=== PATIENT | female | born 1990 | race Caucasian/White ===

== ENCOUNTER → 2022-05-18 11:48 | Outpatient (BNVA) | payer SELFPAY | PROVIDERS: Family Provider Family Medicine; Visit Provider Registered Nurse Neonatal Intensive Care | DX: M25.532 Pain in left wrist (principal) | CPT/HCPCS: 73110 ==

== ENCOUNTER 2023-08-08 08:04 | Emergency (ER) | payer SELFPAY ==
--- NOTE | 2023-08-08 08:04 | XRR_ITS ---
PROCEDURE INFORMATION: Exam: XR Right Hand Exam date and time: 08/08/2023 8:15 AM Age: 32 years old Clinical indication: Injury or trauma; Hand; Right; Injury details: Laceration to RT palm TECHNIQUE: Imaging protocol: Radiologic exam of the right hand. Views: 3 or more views. Total images: 1 COMPARISON: No relevant prior studies available. FINDINGS: Bones/joints: Bandages noted around fingers. No acute fracture nor subluxation. No osseous erosion nor periosteal reaction. Soft tissues: No radio-dense foreign body. XR/XR hand RT min 3V* [id number] IMPRESSION: 1. No acute osseous pathology. 2. No radio-dense foreign body.
[2023-08-08 08:07] VITALS: BP 132/90; PULSE 84; TEMP 36.4; O2SAT 100; BMI 27.4
[2023-08-08 08:15] LABS: Basophils # 0.1 10^3/uL (0.0-0.1); Basophils % 0.7 %; Eosinophils # 0.2 10^3/uL (0.0-0.8); Eosinophils % 2.2 %; Hematocrit 32.9 % (36-47); Lymphocytes # 2.2 10^3/uL (0.8-4.8); Lymphocytes % 32.7 %; Mean Corpuscular HGB Conc 32.2 g/dL (30-55); Mean Corpuscular Hemoglobin 27.1 pg (27-33); Mean Corpuscular Volume 84.1 fl (85-98); Mean Platelet Volume 11.6 fL (7.4-10.4); Monocytes # 0.6 10^3/uL (0.2-0.9); Monocytes % 8.5 %; Neutrophils # 3.74 10^3/uL (1.8-7.7); Neutrophils % 55.8 %; Nucleated Red Blood Cells % 0 %; Platelet Count 191 10^3/cmm (157-399); Red Blood Count 3.91 10^6/uL (3.85-5.65); Red Cell Distribution Width 14.5 % (12.1-15.1); White Blood Count 6.72 10^3/uL (3.29-11.43)
[2023-08-08] MEDS: ceFAZolin 1,000 MG in sodium chloride 0.9% (plus) 50 ML 100 MG IV (08:25)
[2023-08-08 08:28] VITALS: BP 141/97; PULSE 84; RESP 18; O2SAT 100
[2023-08-08 08:34] LABS: Alanine Aminotransferase 9 U/L (0-33); Albumin Level 3.9 g/dL (3.5-5.2); Alkaline Phosphatase 52 U/L (35-105); Anion Gap 13.8 (5-19); Aspartate Amino Transferase 13 U/L (0-32); Blood Urea Nitrogen 10 mg/dL (6-20); Calcium 8.1 mg/dL (8.5-10.5); Carbon Dioxide 26 mmol/L (22-29); Chloride 103 mmol/L (98-107); Creatinine Clr Calc Pharmacy 104.1116; Glomerular Filtration Rate 84.2 mL/min (90-130); Glucose 88 mg/dL (65-115); Osmolality Calculated 286 mOsm/kg (285-295); Potassium 3.8 mmol/L (3.5-5.1); Sodium 139 mmol/L (136-145); Total Bilirubin 0.2 mg/dL (0.15-1.2); Total Protein 6.9 g/dL (6.6-8.7)
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
[2023-08-08 08:55] VITALS: BP 139/105; PULSE 73; O2SAT 99
[2023-08-08 11:42] VITALS: BP 139/92; PULSE 86; RESP 18; O2SAT 100
[2023-08-08] MEDS: bacitracin ointment Pkt 1 EACH TOPICAL (11:43)
[2023-08-08 11:51] VITALS: BP 139/92; PULSE 86; RESP 18; O2SAT 100
== END 2023-08-08 11:52 | disposition home or self-care (01) ==
PROVIDERS: Emergency Provider Family Medicine
DX: S66.120A Laceration of flexor muscle, fascia and tendon of right index finger at wrist and hand level, initial encounter (principal); S61.411A Laceration without foreign body of right hand, initial encounter; W27.0XXA Contact with workbench tool, initial encounter
CPT/HCPCS: 12001; 73130; 80053; 85025; 86850; 86900; 96365; 96366; 99284; J0690

== ENCOUNTER → 2024-06-16 11:50 | Outpatient (BNVA) | payer BC, SELFPAY | PROVIDERS: Visit Provider Nurse Practitioner | DX: R11.10 Vomiting, unspecified (principal) | CPT/HCPCS: 87400 ==

== ENCOUNTER 2024-09-09 12:42 | Outpatient (CLI) | payer BC, MEDICAID, SELFPAY ==
[2024-09-09 13:41] LABS: Basophils # 0.1 10^3/uL (0.0-0.1); Basophils % 0.6 %; Eosinophils # 0.5 10^3/uL (0.0-0.8); Eosinophils % 5.7 %; Hematocrit 40.5 % (36-47); Lymphocytes # 2.3 10^3/uL (0.8-4.8); Lymphocytes % 28.4 %; Mean Corpuscular HGB Conc 32.8 g/dL (30-55); Mean Corpuscular Hemoglobin 28.5 pg (27-33); Mean Corpuscular Volume 86.9 fl (85-98); Mean Platelet Volume 12.5 fL (7.4-10.4); Monocytes # 0.6 10^3/uL (0.2-0.9); Monocytes % 6.8 %; Neutrophils % 58.3 %; Nucleated Red Blood Cells % 0 %; Platelet Count 183 10^3/cmm (157-399); Red Blood Count 4.66 10^6/uL (3.85-5.65); Red Cell Distribution Width 13.5 % (12.1-15.1); White Blood Count 8.24 10^3/uL (3.29-11.43)
[2024-09-09 13:56] LABS: Estmated Average Glucose 88; Hemoglobin A1C 4.7 % (4.0-6.0)
[2024-09-09 14:12] LABS: Alanine Aminotransferase 10 U/L (0-33); Albumin Level 4.1 g/dL (3.5-5.2); Alkaline Phosphatase 60 U/L (35-105); Aspartate Amino Transferase 13 U/L (0-32); Blood Urea Nitrogen 10 mg/dL (6-20); Calcium 8.6 mg/dL (8.5-10.5); Carbon Dioxide 24 mmol/L (22-29); Chloride 102 mmol/L (98-107); Chol HDL Ratio 3.35 mg/dL (0.0-4.40); Cholesterol 124 mg/dL (0-200); Globulin 3.2 g/dL (1.3-4.6); Glomerular Filtration Rate 143.9 mL/min (90-130); Glucose 100 mg/dL (65-115); HDL Cholesterol 37 mg/dL (60-100); LDL Cholesterol Calculated 58 mg/dL (50-129); LDL HDL Ratio 1.57 RATIO (0.00-3.22); Osmolality Calculated 281 mOsm/kg (285-295); Sodium 136 mmol/L (136-145); Thyroid Stimulating Hormone 0.65 uIU/mL (0.27-4.20); Total Bilirubin 0.2 mg/dL (0.15-1.2); Total Protein 7.3 g/dL (6.6-8.7); Triglycerides 147 mg/dL (0-150)
[2024-09-09 14:16] LABS: Hepatitis A Antibody IgM Non-Reactive (Nonreactive); Hepatitis B Core IgM Non-Reactive (Nonreactive); Hepatitis B Surface Antigen Non-Reactive (Nonreactive)
[2024-09-09 14:53] LABS: Hepatitis C Virus Antibody Reactive (Nonreactive)
[2024-09-10 15:09] LABS: HEP C RNA Viral Load Quant <1.18 NOT DETECTED Log IU/mL (NOT DETECTED); HEP C RNA Viral Load Quant <15 NOT DETECTED IU/mL (NOT DETECTED)
== END 2024-09-09 12:43 | disposition home or self-care (01) ==
LOC: LAB 13:00
PROVIDERS: Visit Provider Internal Medicine
DX: F15.20 Other stimulant dependence, uncomplicated (principal)
CPT/HCPCS: 36415; 80053; 80061; 80074; 83036; 84443; 85025; 87522

== ENCOUNTER 2024-11-30 21:27 | Emergency (ER) | payer OTHER, BC, MEDICAID, SELFPAY ==
[2024-11-30 21:35] VITALS: BP 125/85; PULSE 81; RESP 17; TEMP 36.7; O2SAT 99; BMI 35.7
[2024-11-30 23:15] VITALS: BP 136/96
[2024-11-30] MEDS: hyDROXYzine 25 mg Capsule PO (23:15)
[2024-11-30] MEDS: ibuprofen 600 mg Tablet PO (23:15)
[2024-11-30] MEDS: cloNIDine 0.1 mg Tablet PO (23:15)
[2024-11-30] MEDS: ondansetron 4 MG Tablet PO (23:25)
--- NOTE | 2024-11-30 23:25 | ED_ITS ---
Documented by User: RANI Donaldson 11/30/24 23:29 HPI - Recheck/Abnormal Lab/Rx General: Chief Complaint: Recheck/Abnormal Lab/Rx Stated Complaint: W/D symptoms from medication Time Seen by Provider: 11/30/24 21:47 Source: patient Mode of arrival: ambulatory Limitations: no limitations History of Present Illness: Patient is a 34-year-old female who presents the emergency department complaining of withdrawal symptoms. She states that she has been taking kratom extract for a few months, but states it is got too expensive and she does not want to be reliant upon it so she stopped altogether this morning. States that she has been agitated, restless, has had diarrhea, cold sweats, and chills all day today and states that a friend of hers told her to go to the ED for treatment because they had severe withdrawal symptoms as well. Patient states that she cannot miss work, so is here somewhat prophylactically to make sure that her symptoms do not worsen. Vitals stable at this time, afebrile. complaint: other (Withdrawal symptoms) Initial visit (ago): hour(s) Related Data Home Medications ?Medication ?Instructions ?Recorded ?Confirmed lisinopril 30 mg tablet 30 mg PO DAILY 06/16/2406/05 naltrexone 4.5 mg capsule mg PO 06/16/24 06/16/24 topiramate 25 mg capsule,extended 25 mg PO DAILY 06/1606/16/24 release 24 hr Previous Rx's ?Medication ?Instructions ?Recorded diclofenac sodium 75 mg 75 mg PO Q12H PRN pain #20 t abs 08/08/23 tablet,delayed release hydroxyzine HCl 25 mg tablet 25 mg PO Q8H PRN nausea a nd 11/30/24 vomiting #30 tabs ondansetron 4 mg disintegrating 4 mg PO TID PRN nausea and 11/30/24 tablet vomiting #30 tabs Allergies Allergy/AdvReac Type Severity Reaction Status Date / Time No Known Allergies Allergy Verified 06/16/24 11:43 Review of Systems General: Reports: 10 or more systems reviewed and unremarkable except in HPI and below and Other (Reports withdrawal symptoms) Const: Reports: chills and night sweats; Denies: fever(s) or fatigue Eyes: Denies: change in vision ENMT: Denies: throat pain, ear or mastoid pain or nasal discharge Card: Denies: chest pain, palpitations, swelling of feet/ankles or lightheadedness Resp: Denies: dyspnea, productive cough or wheezing GI: Reports: diarrhea; Denies: abdominal pain, nausea, vomiting or constipation : Denies: flank pain, difficulty voiding, dysuria or urinary frequency Musc: Denies: neck pain, back pain or joint pain Skin/Breast: Denies: rash Neuro: Reports: restless legs; Denies: headache(s), numbness in extremities or weakness in extremities Psych: Reports: irritability PFSH ED PFSH: Medical History Psychiatric care Generalized anxiety disorder Other stimulant dependence, in remission Social History Smoking and tobacco/nicotine status: never used tobacco/nicotine Female Reproductive History: Date of last menstrual period: 11/14/24 Physical Exam Const: COMMON NORMALS: no acute distress, patient oriented x3 and no limitations GENERAL APPEARANCE: cooperative, comfortable and well developed ORIENTATION/CONSCIOUSNESS: Yes awake, Yes oriented to person, Yes oriented to place and Yes oriented to time HENMT: COMMON NORMALS: normocephalic, atraumatic and hearing grossly normal bilaterally HEAD & SCALP: normocephalic and atraumatic Eye: COMMON NORMALS: Equal, round and reactive pupils present, EOMs intact bilaterally and conjunctivae normal CONJUNCTIVA: Yes conjunctivae normal PUPIL: Yes Equal, round and reactive pupils present Neck/C-Spine: COMMON NORMALS: full ROM, supple and no JVD Resp: COMMON NORMALS: normal respiratory effort, No retractions, No use of accessory muscles and clear to auscultation bilaterally AUSCULTATION: clear to auscultation bilaterally Cardio: COMMON NORMALS: no JVD, regular rate, regular rhythm, No clicks present (Cardio), No murmurs present (Cardio) and No rub (Cardio) RATE: regular rate RHYTHM: regular rhythm GI: COMMON NORMALS: Normal to inspection, nondistended, normoactive bowel s ounds present, Soft to palpation and non-tender AUSCULTATION: Yes normoactive bowel sounds PALPATION: Yes Soft to palpation RECTAL EXAM: deferred Extremity: COMMON NORMALS: normal to inspection, full ROM and capillary refill normal Neuro: COMMON NORMALS: patient oriented x3, moves all extremities, no focal motor deficits and no sensory deficits noted SENSORIUM/ORIENTATION: Yes orie nted to person, Yes oriented to place and Yes oriented to time Psych: COMMON NORMALS: mental status grossly normal and Normal thought process present THOUGHT PROCESS: Normal thought process present Skin: COMMON NORMALS: no rashes or lesions noted GENERAL SKIN EXAM: no rashes or lesions noted Course Vital Signs: Vital signs: Vital Signs Temperature 98.1 F 11/30/24 21:35 Pulse Rate 76 11/30/24 23:28 Respiratory Rate 16 11/30/24 23:28 Blood Pressure 136/56 11/30/24 23:28 Pulse Oximetry 98 11/30/24 23:28 Oxygen Delivery Me thod Room Air 11/30/24 21:35 MDM - Recheck/Abnormal Lab/Rx Medical Decision Making Patient presenting here with concerns of withdrawal from kratom, her last dose was this morning. Exam was unremarkable, only reported mild symptoms that began this morning. I had placed orders for IV fluids to be taken with clonidine, IV Zofran, hydroxyzine, and ibuprofen body aches but she denied this stating she needed to get home. She took the p.o. medications and I gave her strict return precautions to the ED such as persistent vomiting or diarrhea leading to dehydration, severe agitation, confusion, hallucinations, high fever or muscle rigidity, and chest pain or shortness of breath. She agreed with this plan, Zofran and hydroxyzine sent to her pharmacy. I did warn her that going cold turkey off of the kratom might precipitate significant withdrawal symptoms. No radiology studies performed this visit Discharge Plan Discharge Patient Disposition: Home Clinical Impression: Drug withdrawal Qualifiers: Substance type: other psychoactive substance Qualified Code(s): F19.939 - Other psychoactive substance use, unspecified with withdrawal, unspecified Condition: Stable Prescriptions: New hydroxyzine HCl 25 mg tablet 25 mg PO Q8H PRN (Reason: nausea and vomiting) Qty: 30 0RF ondansetron 4 mg tablet,disintegrating 4 mg PO TID PRN (Reason: nausea and vomiting) Qty: 30 0RF Discontinued hydroxyzine HCl 25 mg tablet 25 mg PO BID PRN ondansetron HCl 4 mg tablet 4 mg PO Q8H PRN (Reason: nausea and vomiting) Qty: 10 0RF No Action topiramate 25 mg capsule,extended release 24hr 25 mg PO DAILY naltrexone 4.5 mg capsule PO lisinopril 30 mg tablet 30 mg PO DAILY diclofenac sodium 75 mg tablet,delayed release (DR/EC) 75 mg PO Q12H PRN (Reason: pain) Qty: 20 0RF Discharge Orders: Discharge ED (Routine); Ordered 11/30/24 Ordered By: Sohan Henderson Patient Instructions: Pain Management, Patient Portal & Charlie Instructions Activity Restrictions/Additional Instructions: Kratom Withdrawal Discharge Discharge Instructions for Kratom Withdrawal Overview: Kratom (Mitragyna speciosa) withdrawal can present with both physical and psychological symptoms, including myalgias, joint pain, insomnia, diarrhea, nausea, vomiting, lacrimation, rhinorrhea, tremor, chills, restlessness, anxiety, irritability, and depressed mood. These symptoms typically begin within 12?24 hours of cessation and may last up to 5?7 days, with peak severity in the first 2?3 days. Medications Prescribed: - Antiemetic: Take as directed for nausea and vomiting. - Hydroxyzine: Take as prescribed for anxiety, restlessness, and insomnia. Hydroxyzine is a non-benzodiazepine antihistamine with anxiolytic and sedative properties, which may help alleviate psychological withdrawal symptoms. Symptom Management: - Maintain adequate hydration, especially if experiencing vomiting or diarrhea. - Use [id number]-[id number] analgesics (e.g., acetaminophen or NSAIDs) for myalgias and body aches, unless contraindicated. - Rest in a quiet, comfortable environment. - Monitor for worsening symptoms, especially if there is a history of polysubstance use or underlying medical conditions. Handling Abrupt Cessation ( [place] ): Abrupt cessation of kratom can precipitate significant withdrawal symptoms. While most cases are self-limited and managed symptomatically, severe or persistent symptoms may require escalation of care. There is limited evidence for the use of opioid agonist therapy (e.g., buprenorphine) in refractory cases, but this is typically reserved for severe withdrawal or comorbid opioid use disorder and should be managed by addiction specialists. Strict Return Precautions: Return to the emergency department or contact your healthcare provider immediately if you experience: - Persistent vomiting or diarrhea leading to signs of dehydration (dizziness, inability to keep fluids down, decreased urination) - Severe agitation, confusion, hallucinations, or suicidal thoughts - Chest pain, palpitations, or shortness of breath - High fever, muscle rigidity, or tremors that do not improve - Any other symptoms that feel severe or unmanageable Follow-Up: Schedule follow-up with your primary care provider or addiction medicine specialist within 1 week for ongoing support and assessment of withdrawal progression and risk of relapse. Additional Notes: Avoid use of other sedating substances (e.g., alcohol, benzodiazepines) during withdrawal, as these may increase the risk of adverse effects. If you have a history of psychiatric illness, monitor for worsening mood or anxiety and seek prompt evaluation if symptoms escalate. For any questions or concerns, contact your healthcare provider. Print Language: Jordanian Coding Level of Care Code ED Recreational Therapist for Kaylieg Fwd Documented by User: Hal Burns, 12/01/24 00:37 HPI - Recheck/Abnormal Lab/Rx General: Chief Complaint: Recheck/Abnormal Lab/Rx Stated Complaint: W/D symptoms from medication Time Seen by Provider: 11/30/24 21:47 Related Data Home Medications ?Medication ?Instructions ?Recorded ?Confirmed lisinopril 30 mg tablet 30 mg PO DAILY 06/16/2406/05 naltrexone 4.5 mg capsule mg PO 06/16/24 06/16/24 topiramate 25 mg capsule,extended 25 mg PO DAILY 06/1606/16/24 release 24 hr Previous Rx's ?Medication ?Instructions ?Recorded diclofenac sodium 75 mg 75 mg PO Q12H PRN pain #20 t abs 08/08/23 tablet,delayed release hydroxyzine HCl 25 mg tablet 25 mg PO Q8H PRN nausea a nd 11/30/24 vomiting #30 tabs ondansetron 4 mg disintegrating 4 mg PO TID PRN nausea and 11/30/24 tablet vomiting #30 tabs Allergies Allergy/AdvReac Type Severity Reaction Status Date / Time No Known Allergies Allergy Verified 06/16/24 11:43 [facility] ED PFSH: Medical History Psychiatric care Generalized anxiety disorder Other stimulant dependence, in remission Social History Smoking and tobacco/nicotine status: never used tobacco/nicotine Course Vital Signs: Vital signs: Vital Signs Temperature 98.1 F 11/30/24 21:35 Pulse Rate 76 11/30/24 23:28 Respiratory Rate 16 11/30/24 23:28 Blood Pressure 136/56 11/30/24 23:28 Pulse Oximetry 98 11/30/24 23:28 Oxygen Delivery Me thod Room Air 11/30/24 21:35 MDM - Recheck/Abnormal Lab/Rx Medical Decision Making Patient presenting here with concerns of withdrawal from kratom, her last dose was this morning. Exam was unremarkable, only reported mild symptoms that began this morning. I had placed orders for IV fluids to be taken with clonidine, IV Zofran, hydroxyzine, and ibuprofen body aches but she denied this stating she needed to get home. She took the p.o. medications and I gave her strict return precautions to the ED such as persistent vomiting or diarrhea leading to dehydration, severe agitation, confusion, hallucinations, high fever or muscle rigidity, and chest pain or shortness of breath. She agreed with this plan, Zofran and hydroxyzine sent to her pharmacy. I did warn her that going cold turkey off of the kratom might precipitate significant withdrawal symptoms. This patient was originally seen by Mr. Beatriz PA-C. I agree with his history, evaluation, and management. Discharge Plan Discharge Patient Disposition: Home Clinical Impression: Drug withdrawal Qualifiers: Substance type: other psychoactive substance Qualified Code(s): F19.939 - Other psychoactive substance use, unspecified with withdrawal, unspecified Condition: Stable Prescriptions: New hydroxyzine HCl 25 mg tablet 25 mg PO Q8H PRN (Reason: nausea and vomiting) Qty: 30 0RF ondansetron 4 mg tablet,disintegrating 4 mg PO TID PRN (Reason: nausea and vomiting) Qty: 30 0RF Discontinued hydroxyzine HCl 25 mg tablet 25 mg PO BID PRN ondansetron HCl 4 mg tablet 4 mg PO Q8H PRN (Reason: nausea and vomiting) Qty: 10 0RF No Action topiramate 25 mg capsule,extended release 24hr 25 mg PO DAILY naltrexone 4.5 mg capsule PO lisinopril 30 mg tablet 30 mg PO DAILY diclofenac sodium 75 mg tablet,delayed release (DR/EC) 75 mg PO Q12H PRN (Reason: pain) Qty: 20 0RF Discharge Orders: Discharge ED (Routine); Ordered 11/30/24 Ordered By: Sohan Henderson Patient Instructions: Pain Management, Patient Portal & Charlie Instructions Activity Restrictions/Additional Instructions: Kratom Withdrawal Discharge Discharge Instructions for Kratom Withdrawal Overview: Kratom (Mitragyna speciosa) withdrawal can present with both physical and psychological symptoms, including myalgias, joint pain, insomnia, diarrhea, nausea, vomiting, lacrimation, rhinorrhea, tremor, chills, restlessness, anxiety, irritability, and depressed mood. These symptoms typically begin within 12?24 hours of cessation and may last up to 5?7 days, with peak severity in the first 2?3 days. Medications Prescribed: - Antiemetic: Take as directed for nausea and vomiting. - Hydroxyzine: Take as prescribed for anxiety, restlessness, and insomnia. Hydroxyzine is a non-benzodiazepine antihistamine with anxiolytic and sedative properties, which may help alleviate psychological withdrawal symptoms. Symptom Management: - Maintain adequate hydration, especially if experiencing vomiting or diarrhea. - Use [id number] analgesics (e.g., acetaminophen or NSAIDs) for myalgias and body aches, unless contraindicated. - Rest in a quiet, comfortable environment. - Monitor for worsening symptoms, especially if there is a history of polysubstance use or underlying medical conditions. Handling Abrupt Cessation ( [place] ): Abrupt cessation of kratom can precipitate significant withdrawal symptoms. While most cases are self-limited and managed symptomatically, severe or persistent symptoms may require escalation of care. There is limited evidence for the use of opioid agonist therapy (e.g., buprenorphine) in refractory cases, but this is typically reserved for severe withdrawal or comorbid opioid use disorder and should be managed by addiction specialists. Strict Return Precautions: Return to the emergency department or contact your healthcare provider immediately if you experience: - Persistent vomiting or diarrhea leading to signs of dehydration (dizziness, inability to keep fluids down, decreased urination) - Severe agitation, confusion, hallucinations, or suicidal thoughts - Chest pain, palpitations, or shortness of breath - High fever, muscle rigidity, or tremors that do not improve - Any other symptoms that feel severe or unmanageable Follow-Up: Schedule follow-up with your primary care provider or addiction medicine specialist within 1 week for ongoing support and assessment of withdrawal progression and risk of relapse. Additional Notes: Avoid use of other sedating substances (e.g., alcohol, benzodiazepines) during withdrawal, as these may increase the risk of adverse effects. If you have a history of psychiatric illness, monitor for worsening mood or anxiety and seek prompt evaluation if symptoms escalate. For any questions or concerns, contact your healthcare provider. Print Language: Jordanian Coding Level of Care Code ED Recreational Therapist for Xavier Byrd
[2024-11-30 23:28] VITALS: BP 136/56; PULSE 76; RESP 16; O2SAT 98
== END 2024-11-30 23:30 | disposition home or self-care (01) ==
PROVIDERS: Emergency Provider Physician Assistant
DX: F19.939 Other psychoactive substance use, unspecified with withdrawal, unspecified (principal)
CPT/HCPCS: 99283; J9999; Q0162

== ENCOUNTER 2024-12-03 11:25 | Emergency (ER) | payer OTHER, BC, MEDICAID, SELFPAY ==
[2024-12-03 11:30] VITALS: BP 121/85; PULSE 73; RESP 16; TEMP 36.5; O2SAT 100
--- NOTE | 2024-12-03 12:00 | W.ED.GENADLT ---
HPI - General Adult General: Chief complaint: General Medical Stated complaint: chills/aches Time Seen by Provider: 12/03/24 11:30 Source: patient Mode of arrival: ambulatory Limitations: no limitations History of Present Illness: Patient is a 34-year-old female presents to ED today for evaluation and treatment of kratom withdrawal. Patient states she started using this approximately 4 months ago to help with energy as she is currently working 2 jobs. She states she was using the higher form of this medication and getting it at a vape shop. She states she is no longer wanting to be dependent upon this medication and thus tried to withdraw from it a few days ago but the symptoms were too significant. She was seen here in the emergency department and given nausea meds, hydroxyzine, and clonidine. She does feel like the clonidine helped but was not provided a prescription of this. She states that withdrawal symptoms were so bad at home that she resorted back to using kratom which alleviated all of her symptoms. She complains of headache, sweatiness, feeling flushed, diarrhea, achiness. Onset (ago): day(s) Severity: moderate Relieving factors: other (use of kratom alleviates all her symptoms ) Associated symptoms: Reports headache(s) and nausea; Deny chest pain, confusion, dyspnea, malaise, rash, palpitations or syncope Treatments prior to arrival: none Related Data Home Medications ?Medication ?Instructions ?Recorded ?Confirmed bupropion HCl 300 mg 24 hr tablet, 300 mg PO DAILY 12/03/24 12/03/24 extended release ferrous sulfate 325 mg (65 mg 325 mg PO DAILY 12/03/24 12/03/24 iron) tablet (FeroSul) lisinopril 20 mg tablet 20 mg PO DAILY 12/03/24 12/03/24 naltrexone 50 mg tablet 50 mg PO DAILY 12/03/24 12/03/24 olanzapine 20 mg tablet 20 mg PO DAILY 12/03/24 12/03/24 prazosin 2 mg capsule 2 mg PO BID 12/03/24 12/03/24 propranolol 20 mg tablet 20 mg PO TID 12/03/24 12/03/24 topiramate 100 mg tablet 100 mg PO DAILY 12/03/24 12/03/24 Previous Rx's ?Medication ?Instructions ?Recorded hydroxyzine HCl 25 mg tablet 25 mg PO Q8H PRN nausea and 11/30/24 vomiting #30 tabs ondansetron 4 mg disintegrating 4 mg PO TID PRN nausea and 11/30/24 tablet vomiting #30 tabs clonidine HCl 0.1 mg tablet 0.1 mg PO .q 4-6 PRN withdrawal 12/03/24 symptoms #15 tabs Allergies Allergy/AdvReac Type Severity Reaction Status Date / Time No Known Allergies Allergy Verified 06/16/24 11:43 Review of Systems Const: Reports: chills and body aches; Denies: fever(s), fatigue or malaise Eyes: Denies: change in vision, blurry vision, photophobia, floaters or seeing flashes Card: Denies: chest pain, palpitations, syncope or pre-syncope Resp: Denies: dyspnea GI: Reports: nausea and diarrhea : Denies: flank pain, dysuria or hematuria Musc: Denies: neck pain, back pain, extremity pain, extremity swelling, joint pain, joint swelling or joint redness Skin/Breast: Denies: rash Neuro: Reports: headache(s); Denies: numbness in extremities, weakness in extremities, sensory changes, difficulty walking, dizziness or confusion [facility] ED PFSH: Medical History Psychiatric care Generalized anxiety disorder Other stimulant dependence, in remission Social History Smoking and tobacco/nicotine status: never used tobacco/nicotine Physical Exam Const: COMMON NORMALS: no acute distress, average body habitus, patient oriented x3, no limitations, healthy appearing, alert and well nourished GENERAL APPEARANCE: cooperative ORIENTATION/CONSCIOUSNESS: Yes awake, Yes oriented to person, Yes oriented to place and Yes oriented to time Resp: COMMON NORMALS: normal respiratory effort and clear to auscultation bilaterally AUSCULTATION: clear to auscultation bilaterally Cardio: COMMON NORMALS: regular rate and regular rhythm RATE: regular rate RHYTHM: regular rhythm GI: COMMON NORMALS: Normal to inspection, nondistended, normoactive bowel sounds present, Soft to palpation, non-tender, No hepatosplenomegaly present and no masses PALPATION: Yes Soft to palpation and Yes No hepatosplenomegaly present : COMMON NORMALS: Yes no CVA tenderness BLADDER/KIDNEY EXAM: Yes no CVA tenderness Back/Pelvis: COMMON NORMALS: no CVA tenderness and thoracic and lumbar spine normal to inspection Extremity: GENERAL: Yes normal exam except as noted Neuro: AMOR COMA SCALE: document GCS findings Amor coma scale eye opening: Spontaneous Amor coma scale verbal response: Orientated Amor coma scale motor response: [place] commands [place] coma scale total score: 15 COMMON NORMALS: patient oriented x3, moves all extremities, no focal motor deficits, no sensory deficits noted and gait normal SENSORIUM/ORIENTATION: Yes alert, Yes oriented to person, Yes oriented to place and Yes oriented to time Course Vital Signs: Vital signs: Vital Signs Temperature 97.7 F 12/03/24 11:30 Pulse Rate 66 12/03/24 13:02 Respiratory Rate 18 12/03/24 13:02 Blood Pressure 123/97 12/03/24 13:02 Pulse Oximetry 100 12/03/24 13:02 Oxygen Delivery Me thod Room Air 12/03/24 11:30 MDM - General Adult Medical Decision Making UpToDate recommends treating Kratom withdraw with buprenorphine and for patient's who decline this and whose blood pressure can tolerate, clonidine. We did contact [facility] here in [place] and they confirmed that they do treat Kratom withdraw at their clinic. Patient was offered both options and she would like to try the clonidine. Blood pressures here are normal. She is already taking lisinopril, propranolol, and prazosin. She will need to monitor blood pressures at home closely which patient is agreeable to. She may need to cut her hypertension meds in half and take those for the next 2-3 days while she is on the clonidine. She was given information for [facility] as well. Medical Records I reviewed the patient's medical records. Lab Data I reviewed the patient's lab results. 12/03/24 12:20 12/03/24 12:20 Laboratory Results WBC 8.67 10^3/uL (3.29-11.43) 12/03/24 12:20 RBC 4.63 10^6/uL (3.85-5.65) 12/03/24 12:20 Hgb 13.10 g/dL (11.27-16.99) 12/03/24 12:20 Hct 40.4 % (36-47) 12/03/24 12:20 MCV 87.3 fl (85-98) 12/03/24 12:20 MCH 28.3 pg (27-33) 12/03/24 12:20 MCHC 32.4 g/dL (30-55) 12/03/24 12:20 RDW 14.3 % (12.1-15.1) 12/03/24 12:20 Plt Count 168 10^3/cmm (157-399) 12/03/24 12:20 MPV 13.1 fL (7.4-10.4) H 12/03/24 12:20 Neut % (Auto) 64.1 % 12/03/24 12:20 Lymph % (Auto) 26.1 % 12/03/24 12:20 [place] % (Auto) 6.5 % 12/03/24 12:20 Eos % (Auto) 2.3 % 12/03/24 12:20 Baso % (Auto) 0.7 % 12/03/24 12:20 Neut # (Auto) 5.56 10^3/uL (1.8-7.7) 12/03/24 12:20 Lymph # (Auto) 2.3 10^3/uL (0.8-4.8) 12/03/24 12:20 [place] # (Auto) 0.6 10^3/uL (0.2-0.9) 12/03/24 12:20 Eos # (Auto) 0.2 10^3/uL (0.0-0.8) 12/03/24 12:20 Baso # (Auto) 0.1 10^3/uL (0.0-0.1) 12/03/24 12:20 Nucleated RBC % (auto) 0 % 12/03/24 12:20 Nucleated RBCs # 0.0 /100WBC 12/03/24 12:20 Sodium 138 mmol/L (136-145) 12/03/24 12:20 Potassium 3.9 mmol/L (3.5-5.1) 12/03/24 12:20 Chloride 105 mmol/L (98-107) 12/03/24 12:20 Carbon Dioxide 20 mmol/L (22-29) L 12/03/24 12:20 Anion Gap 16.9 (5-19) 12/03/24 12:20 BUN 9 mg/dL (6-20) 12/03/24 12:20 Creatinine 0.6 mg/dL (0.5-0.9) 12/03/24 12:20 GFR Calculation 115.9 mL/min (90-130) 12/03/24 12:20 Glucose 98 mg/dL (65-115) 12/03/24 12:20 Calculated Osmolality 285 mOsm/kg (285-295) 12/03/24 12:20 Calcium 9.2 mg/dL (8.5-10.5) 12/03/24 12:20 Total Bilirubin 0.2 mg/dL (0.15-1.2) 12/03/24 12:20 AST 12 U/L (0-32) 12/03/24 12:20 ALT 12 U/L (0-33) 12/03/24 12:20 Alkaline Phosphatase 64 U/L (35-105) 12/03/24 12:20 Total Protein 7.0 g/dL (6.6-8.7) 12/03/24 12:20 Albumin 3.9 g/dL (3.5-5.2) 12/03/24 12:20 Globulin 3.1 g/dL (1.3-4.6) 12/03/24 12:20 HCG, Qual Negative (Negative) 12/03/24 12:20 No radiology studies performed this visit Discharge Plan Discharge Patient Disposition: Home Clinical Impression: Drug withdrawal Qualifiers: Substance type: other psychoactive substance Qualified Code(s): F19.939 - Other psychoactive substance use, unspecified with withdrawal, unspecified Condition: Stable Prescriptions: New clonidine HCl 0.1 mg tablet 0.1 mg PO .q 4-6 PRN (Reason: withdrawal symptoms) Qty: 15 0RF No Action naltrexone 50 mg tablet 50 mg PO DAILY lisinopril 20 mg tablet 20 mg PO DAILY ferrous sulfate [FeroSul] 325 mg (65 mg iron) tablet 325 mg PO DAILY propranolol 20 mg tablet 20 mg PO TID topiramate 100 mg tablet 100 mg PO DAILY olanzapine 20 mg tablet 20 mg PO DAILY prazosin 2 mg capsule 2 mg PO BID bupropion HCl 300 mg tablet extended release 24 hr 300 mg PO DAILY hydroxyzine HCl 25 mg tablet 25 mg PO Q8H PRN (Reason: nausea and vomiting) Qty: 30 0RF ondansetron 4 mg tablet,disintegrating 4 mg PO TID PRN (Reason: nausea and vomiting) Qty: 30 0RF Discharge Orders: Discharge ED (Routine); Ordered 12/03/24 Ordered By: Soo Palm Patient Instructions: Clonidine Hydrochloride (By mouth), Opioid Withdrawal (ED), Narcotic Withdrawal (ED), Patient Portal & Charlie Instructions Activity Restrictions/Additional Instructions: As we discussed, you need to watch her blood pressure closely while using the clonidine. You are on other medications that can lower your blood pressure including lisinopril, propranolol, and prazosin. You may need to take half doses of your blood pressure medications so your blood pressure does not get too low. Take your blood pressure prior to administering the clonidine. Do not take if blood pressure is below 105/70. We have also spoke about treatment options through [facility] here in [place]. Information for their office is: [id number], [place], [place] [id number] Print Language: Slovak Coding Level of Care Code ED [employer] [facility] [employer] [facility]
[2024-12-03 12:26] LABS: Hematocrit 40.4 % (36-47); Hemoglobin 13.10 g/dL (11.27-16.99); Mean Corpuscular HGB Conc 32.4 g/dL (30-55); Mean Corpuscular Hemoglobin 28.3 pg (27-33); Mean Corpuscular Volume 87.3 fl (85-98); Nucleated Red Blood Cells % 0 %; Platelet Count 168 10^3/cmm (157-399); Red Blood Count 4.63 10^6/uL (3.85-5.65); White Blood Count 8.67 10^3/uL (3.29-11.43)
[2024-12-03 12:43] LABS: Alanine Aminotransferase 12 U/L (0-33); Albumin Level 3.9 g/dL (3.5-5.2); Alkaline Phosphatase 64 U/L (35-105); Anion Gap 16.9 (5-19); Aspartate Amino Transferase 12 U/L (0-32); Blood Urea Nitrogen 9 mg/dL (6-20); Calcium 9.2 mg/dL (8.5-10.5); Carbon Dioxide 20 mmol/L (22-29); Chloride 105 mmol/L (98-107); Creatinine Clr Calc Pharmacy 153.6409; Globulin 3.1 g/dL (1.3-4.6); Glucose 98 mg/dL (65-115); HCG, Serum Qual Negative (Negative); Osmolality Calculated 285 mOsm/kg (285-295); Potassium 3.9 mmol/L (3.5-5.1); Sodium 138 mmol/L (136-145); Total Protein 7.0 g/dL (6.6-8.7)
[2024-12-03 12:49] LABS: Slide Review Slide Review Perform
[2024-12-03 12:58] VITALS: BP 123/97
[2024-12-03 13:02] VITALS: BP 123/97; PULSE 66; RESP 18; O2SAT 100
[2024-12-03 13:25] VITALS: BP 118/86; PULSE 61; RESP 18; O2SAT 98
== END 2024-12-03 13:26 | disposition home or self-care (01) ==
PROVIDERS: Emergency Provider Physician Assistant
DX: F19.939 Other psychoactive substance use, unspecified with withdrawal, unspecified (principal)
CPT/HCPCS: 36415; 80053; 84703; 85025; 99283; J9999